=== PATIENT | female | born 1990 | race Caucasian/White ===

== ENCOUNTER 2016-12-17 19:59 | Emergency (ER) | payer MEDICAID ==
[2016-12-17 21:34] VITALS: BP 130/86
== END 2016-12-17 21:34 | disposition home or self-care (01) ==
LOC: ED 19:59
DX: O26.891 Other specified pregnancy related conditions, first trimester (principal); R51 Headache; O23.41 Unspecified infection of urinary tract in pregnancy, first trimester; Z3A.11 11 weeks gestation of pregnancy

== ENCOUNTER 2017-08-04 23:26 | Inpatient (IN) | payer OTHER ==
[~2017-08-04] VITALS: Ht 162.6 cm; Wt 75.1 kg
[2017-08-04 23:29] VITALS: Ht 162.6 cm; Wt 75.1 kg
[2017-08-05 00:05] LABS: CALCIUM 8.5 mg/dL (8.5-10.1); CARBON DIOXIDE 27.4 mmol/L (21-32); CHLORIDE SERUM 105 mmol/L (98-107); CREATININE SERUM 0.8 mg/dL (0.6-1.0); GFR1 > 60 mL/min; GLUCOSE SERUM 108 mg/dL (74-106); POTASSIUM SERUM 3.9 mmol/L (3.5-5.1); SODIUM SERUM 141 mmol/L (136-145)
[2017-08-05 00:09] LABS: ALBUMIN 3.6 g/dL (3.4-5.0); ALKALINE PHOSPHATASE 113 U/L (46-116); ALT/SGPT 57 U/L (14-59); AST/SGOT 45 U/L (15-37); BILIRUBIN TOTAL 0.2 mg/dL (0.20-1.00); LIPASE 160 IU/L (73-393); TOTAL PROTEIN, SERUM 7.3 g/dL (6.4-8.2)
[2017-08-05 00:15] LABS: BASOPHIL % 0.3 % (0-2); PLATELET COUNT 302 x10^3mcL (130-400)
[2017-08-05 00:17] LABS: RED CELL DISTRIBUTION WIDTH 23.4 % (11.5-14.5)
[2017-08-05 02:49] LABS: MAGNESIUM 1.7 mg/dL (1.8-2.4); PHOSPHOROUS 4.9 mg/dL (2.5-4.9)
[2017-08-05 02:53] LABS: T3 TOTAL 1.22 ng/mL
[2017-08-05 02:59] LABS: FREE T4 0.97 ng/dL (0.76-1.46); FREE THYROXINE INDEX 2.4 ug/dL (1.4-4.5); T4(THYROXINE) 7.2 ug/dL (4.7-13.3)
[2017-08-05 03:58] LABS: CHOLESTEROL/HDL RATIO 5.4
[2017-08-05 04:14] VITALS: BP 116/62
[2017-08-05 04:14] LABS: AMPHETAMINE QUAL UR NONE DETECTED (See below)
[2017-08-05 04:17] LABS: microscopic required? YES; urine erythrocyte NEGATIVE (NEGATIVE)
[2017-08-05 05:59] VITALS: BP 102/60
[2017-08-05 06:49] LABS: BASOPHIL % 0.4 % (0-2); PLATELET COUNT 296 x10^3mcL (130-400); RED CELL DISTRIBUTION WIDTH 24.5 % (11.5-14.5)
[2017-08-05 08:05] VITALS: BP 110/67
[2017-08-05 17:00] VITALS: BP 93/49
[2017-08-05 20:51] VITALS: BP 92/51
[2017-08-06 05:23] VITALS: BP 103/68
[2017-08-06 06:28] LABS: CALCIUM 8.2 mg/dL (8.5-10.1); CARBON DIOXIDE 26.5 mmol/L (21-32); CHLORIDE SERUM 109 mmol/L (98-107); CREATININE SERUM 0.6 mg/dL (0.6-1.0); GFR1 > 60 mL/min; GLUCOSE SERUM 108 mg/dL (74-106); MAGNESIUM 1.7 mg/dL (1.8-2.4); PHOSPHOROUS 4.2 mg/dL (2.5-4.9); POTASSIUM SERUM 3.9 mmol/L (3.5-5.1); SODIUM SERUM 142 mmol/L (136-145)
[2017-08-06 07:05] LABS: BASOPHIL % 0.4 % (0-2)
[2017-08-06 07:33] LABS: PLATELET COUNT 289 x10^3mcL (130-400); RED CELL DISTRIBUTION WIDTH 24.5 % (11.5-14.5)
[2017-08-06] MEDS ORDERED: IBUPROFEN400 MG PO (08:16)
[2017-08-06] MEDS ORDERED: LAC PO (08:20)
[2017-08-06] MEDS ORDERED: LEVOFLOXACIN500 M1 PO (08:20)
[2017-08-06 09:00] VITALS: BP 96/44
[2017-08-06 10:20] VITALS: BP 98/60
== END 2017-08-06 12:03 | disposition home or self-care (01) | DRG 263 ==
LOC: ED 23:26 → MU 08-05 02:08 → DU 08-05 02:08 → MU 08-06 07:20
PROVIDERS: Emergency Medicine; Family Medicine; Surgery
PROC: 0FT44ZZ Resection of Gallbladder, Percutaneous Endoscopic Approach (ICD-10-PCS; principal; 2017-08-05 09:00)
DX: K80.62 Calculus of gallbladder and bile duct with acute cholecystitis without obstruction (principal); N17.0 Acute kidney failure with tubular necrosis; D50.9 Iron deficiency anemia, unspecified; E83.42 Hypomagnesemia; E03.9 Hypothyroidism, unspecified
CPT/HCPCS: 83880; 84439; 94150; J0330; J1170; J1644; J1885; J2250; J2405; J2543; J2704; J2710; J3010; J3490; J7030; J7120; Q0092